=== PATIENT | male | born 1985 | race Caucasian/White ===

== ENCOUNTER 2017-03-28 13:03 | Emergency (ER) | payer OTHER ==
[2017-03-28 16:05] VITALS: BP 131/88
== END 2017-03-28 16:05 | disposition home or self-care (01) ==
LOC: ED 13:03
DX: M25.561 Pain in right knee (principal); R22.41 Localized swelling, mass and lump, right lower limb; V00.131A Fall from skateboard, initial encounter; Y93.51 Activity, roller skating (inline) and skateboarding; Y92.89 Other specified places as the place of occurrence of the external cause; Y99.8 Other external cause status
CPT/HCPCS: J1885

== ENCOUNTER 2017-05-01 09:49 | Emergency (ER) | payer MEDICAID ==
[~2017-05-01] VITALS: Ht 172.7 cm; Wt 74.6 kg
[2017-05-01 09:57] VITALS: BP 132/90
== END 2017-05-01 10:31 | disposition home or self-care (01) ==
LOC: ED 09:49
DX: S86.911A Strain of unspecified muscle(s) and tendon(s) at lower leg level, right leg, initial encounter (principal); R03.0 Elevated blood-pressure reading, without diagnosis of hypertension; X50.1XXA Overexertion from prolonged static or awkward postures, initial encounter; Y93.89 Activity, other specified; Y99.8 Other external cause status; Y92.89 Other specified places as the place of occurrence of the external cause

== ENCOUNTER 2017-11-04 08:31 | Emergency (ER) | payer SELFPAY ==
[~2017-11-04] VITALS: Ht 170.2 cm; Wt 74.8 kg
[2017-11-04 08:39] VITALS: Ht 170.2 cm; Wt 74.8 kg
[2017-11-04 09:51] VITALS: BP 134/84
== END 2017-11-04 09:51 | disposition home or self-care (01) ==
LOC: ED 08:31
DX: S29.012A Strain of muscle and tendon of back wall of thorax, initial encounter (principal); X58.XXXA Exposure to other specified factors, initial encounter; Y93.89 Activity, other specified; Y92.89 Other specified places as the place of occurrence of the external cause; Y99.8 Other external cause status
CPT/HCPCS: J1885

== ENCOUNTER 2017-12-23 09:40 | Emergency (ER) | payer MEDICAID ==
[~2017-12-23] VITALS: Ht 170.2 cm; Wt 71.7 kg
[2017-12-23 10:57] LABS: BASOPHIL % 0.3 % (0-2); PLATELET COUNT 266 x10^3mcL (130-400)
[2017-12-23 11:14] LABS: CALCIUM 9.2 mg/dL (8.5-10.1); CARBON DIOXIDE 23.3 mmol/L (21-32); CHLORIDE SERUM 108 mmol/L (98-107); CREATININE SERUM 1.1 mg/dL (0.7-1.3); GFR1 > 60 mL/min; GLUCOSE SERUM 103 mg/dL (74-106); SODIUM SERUM 142 mmol/L (136-145)
[2017-12-23 11:20] LABS: ALBUMIN 4.2 g/dL (3.4-5.0); ALKALINE PHOSPHATASE 110 U/L (46-116); ALT/SGPT 31 U/L (16-63); AMYLASE 44 U/L (25-115); AST/SGOT 22 U/L (15-37); LIPASE 145 IU/L (73-393)
[2017-12-23 11:36] LABS: AMPHETAMINE QUAL UR NONE DETECTED (See below)
[2017-12-23 13:08] VITALS: BP 122/84
== END 2017-12-23 13:08 | disposition home or self-care (01) ==
LOC: ED 09:40
PROVIDERS: Specialist
DX: R19.7 Diarrhea, unspecified (principal); R11.10 Vomiting, unspecified; R53.1 Weakness
CPT/HCPCS: 83880; J2405; J7030

== ENCOUNTER 2018-03-17 09:40 | Emergency (ER) | payer OTHER ==
[~2018-03-17] VITALS: Ht 172.7 cm; Wt 75.7 kg
[2018-03-17 10:40] LABS: CALCIUM 8.8 mg/dL (8.5-10.1); CARBON DIOXIDE 25.8 mmol/L (21-32); CHLORIDE SERUM 107 mmol/L (98-107); CREATININE SERUM 0.9 mg/dL (0.7-1.3); GFR1 > 60 mL/min; GLUCOSE SERUM 98 mg/dL (74-106); POTASSIUM SERUM 4.1 mmol/L (3.5-5.1); SODIUM SERUM 141 mmol/L (136-145)
[2018-03-17 11:58] VITALS: BP 130/89
== END 2018-03-17 11:58 | disposition home or self-care (01) ==
LOC: ED 09:40
PROVIDERS: Emergency Medicine
DX: B34.9 Viral infection, unspecified (principal)
CPT/HCPCS: J1885; J2550

== ENCOUNTER 2018-06-02 13:55 | Emergency (ER) | payer OTHER ==
[~2018-06-02] VITALS: Ht 172.7 cm; Wt 74.8 kg
[2018-06-02 14:02] VITALS: Ht 172.7 cm; Wt 74.8 kg
[2018-06-02 14:45] LABS: BASOPHIL % 0.5 % (0-2); PLATELET COUNT 281 x10^3mcL (130-400); RED CELL DISTRIBUTION WIDTH 11.7 % (11.5-14.5)
[2018-06-02 14:54] LABS: CALCIUM 9.5 mg/dL (8.5-10.1); CARBON DIOXIDE 23.9 mmol/L (21-32); CHLORIDE SERUM 103 mmol/L (98-107); CREATININE SERUM 1.2 mg/dL (0.7-1.3); GFR1 > 60 mL/min; GLUCOSE SERUM 109 mg/dL (74-106); POTASSIUM SERUM 3.4 mmol/L (3.5-5.1); SODIUM SERUM 139 mmol/L (136-145)
[2018-06-02 15:10] LABS: ALBUMIN 4.6 g/dL (3.4-5.0); ALKALINE PHOSPHATASE 106 U/L (46-116); ALT/SGPT 58 U/L (16-63); AST/SGOT 33 U/L (15-37); BILIRUBIN TOTAL 0.5 mg/dL (0.20-1.00)
[2018-06-02 15:11] LABS: TOTAL PROTEIN, SERUM 8.4 g/dL (6.4-8.2)
[2018-06-02 16:05] VITALS: BP 126/80
== END 2018-06-02 16:05 | disposition home or self-care (01) ==
LOC: ED 13:55
PROVIDERS: Emergency Medicine
DX: N13.30 Unspecified hydronephrosis (principal)
CPT/HCPCS: J0780; J1885; J3010; J3490; J7030

== ENCOUNTER 2018-07-29 16:12 | Emergency (ER) | payer OTHER ==
[~2018-07-29] VITALS: Ht 172.7 cm; Wt 75.3 kg
[2018-07-29 16:20] VITALS: Ht 172.7 cm; Wt 75.3 kg
[2018-07-29 17:43] VITALS: BP 141/86
== END 2018-07-29 19:09 | disposition home or self-care (01) ==
LOC: ED 16:12
DX: B34.9 Viral infection, unspecified (principal); J11.1 Influenza due to unidentified influenza virus with other respiratory manifestations; K52.9 Noninfective gastroenteritis and colitis, unspecified
CPT/HCPCS: 87804; J1885; J2405; J7030

== ENCOUNTER 2018-08-15 15:02 | Emergency (ER) | payer OTHER ==
[2018-08-15 15:23] VITALS: Ht 172.7 cm
[2018-08-15 17:37] VITALS: BP 127/94
== END 2018-08-15 17:37 | disposition home or self-care (01) ==
LOC: ED 15:02
DX: R07.89 Other chest pain (principal); R05 Cough; Z87.442 Personal history of urinary calculi
CPT/HCPCS: J1885

== ENCOUNTER 2018-11-10 17:58 | Emergency (ER) | payer OTHER ==
[~2018-11-10] VITALS: Ht 172.7 cm; Wt 72.6 kg
[2018-11-10 18:08] VITALS: BP 129/89; Ht 172.7 cm; Wt 72.6 kg
== END 2018-11-10 18:44 | disposition home or self-care (01) ==
LOC: ED 17:58
DX: J02.9 Acute pharyngitis, unspecified (principal); R42 Dizziness and giddiness

== ENCOUNTER 2018-11-16 06:12 | Emergency (ER) | payer OTHER ==
[~2018-11-16] VITALS: Ht 172.7 cm; Wt 26.3 kg
[2018-11-16 06:16] VITALS: BP 133/94; Ht 172.7 cm; Wt 26.3 kg
== END 2018-11-16 07:10 | disposition home or self-care (01) ==
LOC: ED 06:12
DX: H66.91 Otitis media, unspecified, right ear (principal); H60.91 Unspecified otitis externa, right ear